=== PATIENT | female | born 1990 | race Caucasian/White ===

== ENCOUNTER 2020-05-12 17:58 | Emergency (ER) | payer BC ==
[2020-05-12] MEDS ORDERED: SODIUM CHLORIDE 0.9% 1,000 ML IV STA (18:17)
--- NOTE | 2020-05-12 18:19 | ED Physician Documentation ---
History of Present Illness - Stated complaint Stated Complaint: HIGH BS - Chief complaint Chief Complaint: General - History obtained from History obtained from: Patient - Additonal information Additional information: 30-year-old woman with history of diabetes, diagnosed at age 18. Last DKA was about a year ago. She is maintained on an insulin pump. For the last day or so she has had chills, body aches, epigastric pain, nausea, and uncontrolled blood sugars up into the high 300s despite increasing her basal rate of insulin up 150% of normal. Review of Systems Constitutional: reports: Chills, Myalgias, Fatigue. denies: Fever Ears: denies: Drainage/discharge Nose: denies: Rhinorrhea / runny nose Throat: denies: Sore throat Cardiac: denies: Chest pain / pressure, Palpitations Respiratory: denies: Dyspnea, Cough GI: denies: Constipation, Diarrhea : denies: Dysuria, Frequency PD PAST MEDICAL HISTORY - Allergies Allergies/Adverse Reactions: Allergies Allergy/AdvReac Type Severity Reaction Status Date / Time prochlorperazine Allergy Anaphylaxis Verified 05/12/20 18:50 [From Compazine] levetiracetam [From Keppra] AdvReac Hallucinati Verified 05/12/20 18:50 ons PD ED PE NORMAL - Vitals Vital signs reviewed: Yes - General General: Alert and oriented X 3, No acute distress - HEENT HEENT: PERRL, EOMI - Neck Neck: Supple, no meningeal sign, No bony TTP - Cardiac Cardiac: RRR, No murmur - Respiratory Respiratory: No respiratory distress, Clear bilaterally - Abdomen Abdomen: Normal bowel sounds, Soft, Non tender - Back Back: No CVA TTP, No spinal TTP - Derm Derm: Normal color, Warm and dry - Extremities Extremities: No edema, No calf tenderness / cord - Neuro Neuro: Alert and oriented X 3, Normal speech Results - Vitals Vitals: Vital Signs - 24 hr 05/12/20 18:06 Temperature 36.9 C Heart Rate 78 Respiratory 14 Rate Blood Pressure 137/95 H O2 Saturation 99 Oxygen O2 Source Room air - Labs Labs: Laboratory Tests 05/12/20 05/12/20 05/12/20 18:37 18:37 18:37 WBC 6.6 RBC 4.45 Hgb 13.5 Hct 38.9 MCV 87.4 MCH 30.3 MCHC 34.7 RDW 12.0 Plt Count 278 MPV 10.7 Neut # (Auto) 3.5 Lymph # (Auto) 2.5 [place] # (Auto) 0.5 Eos # (Auto) 0.0 Baso # (Auto) 0.1 Absolute Nucleated RBC 0.00 Nucleated RBC % 0.0 VBG pH 7.406 VBG pCO2 38.1 L VBG pO2 40.9 VBG HCO3 23.4 VBG Total CO2 24.6 VBG O2 Saturation 78.3 VBG Base Excess -1.0 Sodium 138 Potassium 4.0 Chloride 102 Carbon Dioxide 25 Anion Gap 11.0 BUN 17 Creatinine 0.6 Estimated GFR (MDRD) 117 Glucose 306 H Calcium 9.3 Phosphorus 3.0 Magnesium 2.2 Total Bilirubin 0.6 AST 34 ALT 40 Alkaline Phosphatase 68 Total Protein 7.2 Albumin 4.1 Globulin 3.1 Albumin/Globulin Ratio 1.3 Lipase 43 Urine Color Urine Clarity Urine pH Ur Specific [place] Urine Protein Urine Glucose (UA) Urine Ketones Urine Occult Blood Urine Nitrite Urine Bilirubin Urine Urobilinogen Ur Leukocyte Esterase Ur Microscopic Review Urine Culture Comments Urine HCG, Qual Serum Ketones NEGATIVE 05/12/20 18:40 WBC RBC Hgb Hct MCV MCH MCHC RDW Plt Count MPV Neut # (Auto) Lymph # (Auto) [place] # (Auto) Eos # (Auto) Baso # (Auto) Absolute Nucleated RBC Nucleated RBC % VBG pH VBG pCO2 VBG pO2 VBG HCO3 VBG Total CO2 VBG O2 Saturation VBG Base Excess Sodium Potassium Chloride Carbon Dioxide Anion Gap BUN Creatinine Estimated GFR (MDRD) Glucose Calcium Phosphorus Magnesium Total Bilirubin AST ALT Alkaline Phosphatase Total Protein Albumin Globulin Albumin/Globulin Ratio Lipase Urine Color YELLOW Urine Clarity CLEAR Urine pH 5.5 Ur Specific [place] 1.025 Urine Protein NEGATIVE Urine Glucose (UA) >=1000 H Urine Ketones 40 H Urine Occult Blood NEGATIVE Urine Nitrite NEGATIVE Urine Bilirubin NEGATIVE Urine Urobilinogen 0.2 (NORMAL) Ur Leukocyte Esterase NEGATIVE Ur Microscopic Review NOT INDICATED Urine Culture Comments NOT INDICATED Urine HCG, Qual NEGATIVE Serum Ketones PD MEDICAL DECISION MAKING - ED course ED course: 30-year-old woman with longstanding diabetes presents with elevated blood sugars of unclear etiology. Her site looks okay. No evidence of infection on exam or work-up. Not in DKA. Blood sugars improved significantly with simple hydration. Departure - Departure Disposition: 01 Home, Self Care Clinical Impression: Diabetes mellitus with insulin therapy, Hyperglycemia due to type 1 diabetes mellitus Condition: Good Record reviewed to determine appropriate education?: Yes Instructions: ED Hyperglycemia Diabetic Comments: As discussed, the cause of your elevated blood sugars is not clear today, drink plenty of fluids and return if worse. Coordinate with your echocardiography radiology technologist tomorrow as discussed.
[2020-05-12 18:49] LABS: VBG PH 7.406 (7.31-7.41)
[2020-05-12 18:50] LABS: BASOPHILS # (AUTO) 0.1 10^3/uL (0.0-0.1); BASOPHILS % (AUTO) 0.9 %; EOSINOPHILS % (AUTO) 0.6 %; HGB - HEMOGLOBIN 13.5 g/dL (12.0-16.0); LYMPHOCYTES # (AUTO) 2.5 10^3/uL (1.5-3.5); LYMPHOCYTES % (AUTO) 37.9 %; MEAN CORPUSCULAR HEMOGLOBIN 30.3 pg (27.0-31.0); MEAN CORPUSCULAR HGB CONC 34.7 g/dL (32.0-36.0); MEAN CORPUSCULAR VOLUME 87.4 fL (81.0-99.0); MEAN PLATELET VOLUME 10.7 fL (7.9-10.8); MONOCYTES # (AUTO) 0.5 10^3/uL (0.0-1.0); MONOCYTES % (AUTO) 6.9 %; NEUTROPHILS # (AUTO) 3.5 10^3/uL (1.5-6.6); NEUTROPHILS % (AUTO) 53.4 %; PLT - PLATELET COUNT 278 10^3/uL (130-450); RED BLOOD COUNT 4.45 10^6/uL (4.20-5.40); VBG PCO2 38.1 mmHg (41-51); VBG PO2 40.9 mmHg (25-47); VBG TOTAL CO2 24.6 mmol/L (24-29); WHITE BLOOD COUNT 6.6 x10^3/uL (4.8-10.8)
[2020-05-12 18:55] LABS: BILIRUBIN,URINE NEGATIVE (NEGATIVE); GLUCOSE, URINE (UA) >=1000 mg/dL (NEGATIVE); KETONES,URINE (UA) 40 mg/dL (NEGATIVE); LEUKOCYTE ESTERASE, URINE NEGATIVE (NEGATIVE); NITRITE,URINE NEGATIVE (NEGATIVE); OCCULT BLOOD,URINE NEGATIVE (NEGATIVE); PH,URINE 5.5 PH (5.0-7.5); PROTEIN,URINE NEGATIVE (NEGATIVE); UROBILINOGEN,URINE 0.2 (NORMAL) E.U./dL (NORMAL)
[2020-05-12] MEDS ORDERED: ONDANSETRON 4 MG/2 ML VIAL IVP STA (18:57)
[2020-05-12 18:59] LABS: CLARITY,URINE CLEAR (CLEAR)
[2020-05-12 18:59] LABS: KETONES, SERUM (ACETEST) NEGATIVE (NEGATIVE)
[2020-05-12 19:00] LABS: HCG UR QUAL NEGATIVE
--- NOTE | 2020-05-12 19:03 | XRAY Report ---
PROCEDURE: Chest 1 View X-Ray INDICATIONS: Chills TECHNIQUE: One view of the chest was acquired. COMPARISON: None FINDINGS: Surgical changes and devices: None. Lungs and pleura: No pleural effusions or pneumothorax. Lungs are clear. Mediastinum: Mediastinal contours appear normal. Heart size is normal. Bones and chest wall: No suspicious bony lesions. Overlying soft tissues appear unremarkable. IMPRESSION: No acute cardiopulmonary process demonstrated radiographically. Reviewed by: Darryl Yan MD on 05/12/2020 7:02 PM PDT Approved by: Darryl Yan MD on 05/12/2020 7:02 PM PDT Station ID: [id number]
[2020-05-12 19:04] LABS: ALBUMIN 4.1 g/dL (3.2-5.5); ALBUMIN/GLOBULIN RATIO 1.3 (1.0-2.2); ALKALINE PHOSPHATASE 68 IU/L (42-121); ALT ALANINE AMINOTRANSFERASE 40 IU/L (10-60); AST ASPARTATE AMINOTRANSFERASE 34 IU/L (10-42); BILIRUBIN,TOTAL 0.6 mg/dL (0.2-1.0); BUN - BLOOD UREA NITROGEN 17 mg/dL (6-20); CALCIUM 9.3 mg/dL (8.5-10.3); CARBON DIOXIDE - CO2 25 mmol/L (21-32); CHLORIDE 102 mmol/L (101-111); CREATININE 0.6 mg/dL (0.4-1.0); GLUCOSE 306 mg/dL (70-100); LIPASE 43 U/L (22-51); MAGNESIUM 2.2 mg/dL (1.7-2.8); SODIUM 138 mmol/L (135-145); TOTAL PROTEIN 7.2 g/dL (6.7-8.2)
[2020-05-12] MEDS ORDERED: PROMETHAZINE INJ 25 MG in SODIUM CHLORIDE 0.9% 50 ML IV STA (19:55)
[2020-05-12] MEDS ORDERED: KETOROLAC 30 MG/ML VIAL IVP STA (19:55)
[2020-05-12] MEDS ORDERED: PROMETHAZINE 25 MG/1 ML VIAL ONE (20:07)
[2020-05-12 20:43] VITALS: BP 114/67
== END 2020-05-12 20:42 | disposition home or self-care (01) ==
LOC: ED 17:58
DX: E10.65 Type 1 diabetes mellitus with hyperglycemia (principal); Z79.4 Long term (current) use of insulin; R68.83 Chills (without fever); Z20.828 Contact with and (suspected) exposure to other viral communicable diseases
CPT/HCPCS: 36415; 71045; 80053; 81001; 81003; 81025; 82009; 82803; 83690; 83735; 84100; 85025; 87086; 96361; 96365; 96375; 99284